=== PATIENT | female | born 1995 | race Hispanic/Latino ===

== ENCOUNTER 2018-03-27 21:29 | Emergency (ER) | payer BC ==
[~2018-03-27] VITALS: Ht 160 cm; Wt 117.9 kg
== END 2018-03-27 22:12 | disposition left against medical advice (07) ==
LOC: FSED 21:29
DX: H57.10 Ocular pain, unspecified eye (principal)

== ENCOUNTER 2023-12-01 13:49 | Emergency (ER) | payer BC, OTHER ==
[~2023-12-01] VITALS: Ht 160 cm; Wt 113.4 kg
[2023-12-01 13:49] VITALS: O2SAT 98
[2023-12-01] MEDS ORDERED: CEFUROXIME500 MG PO (14:53)
== END 2023-12-01 15:05 | disposition home or self-care (01) ==
LOC: FSED 13:56
DX: R10.30 Lower abdominal pain, unspecified (principal); N30.91 Cystitis, unspecified with hematuria
CPT/HCPCS: 81003; 81025; 99282